=== PATIENT | male | born 1980 | race African-American/Black ===

== ENCOUNTER 2019-09-01 03:46 | Emergency (ER) | payer OTHER ==
[~2019-09-01] VITALS: Ht 185.4 cm; Wt 215.5 kg
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
[2019-09-01 03:57] VITALS: BP 155/110
[2019-09-01] MEDS ORDERED: TRAMADOL 50 MG50 MG PO (04:14)
[2019-09-01] MEDS ORDERED: NEURONTIN100 MG PO (04:15)
[2019-09-01] MEDS ORDERED: COZAAR 25 MG TA25 M1 PO (04:16)
== END 2019-09-01 04:47 | disposition home or self-care (01) ==
LOC: ER 03:46
DX: S21.111A Laceration without foreign body of right front wall of thorax without penetration into thoracic cavity, initial encounter (principal); I10 Essential (primary) hypertension; Z91.030 Bee allergy status; Z79.899 Other long term (current) drug therapy; Y04.0XXA Assault by unarmed brawl or fight, initial encounter; Y93.89 Activity, other specified; Y92.89 Other specified places as the place of occurrence of the external cause; Y99.9 Unspecified external cause status